=== PATIENT | female | born 1945 | race Caucasian/White ===

== ENCOUNTER 2019-01-28 11:56 | Inpatient (IN) ==
[2019-01-28] MEDS ORDERED: Loratadine 10 MG TABLET PO PRN (15:18)
[2019-01-28] MEDS ORDERED: Acetaminophen/Butalbital/CaffeineTABLET PO PRN (15:23)
[2019-01-28] MEDS ORDERED: Albuterol 2.5 MG/3 ML NEBULIZER IH PRN (15:23)
[2019-01-28] MEDS ORDERED: hydrOXYzine pamoate 25 MG CAPSULE PO PRN (15:31)
[2019-01-28] MEDS ORDERED: Nitroglycerin 0.4 MG TAB.SUBL SL PRN (15:31)
[2019-01-28] MEDS ORDERED: DICLOFENAC TOPICAL TP PRN (15:31)
[2019-01-28] MEDS: carvediloL 25 MG TABLET PO SCH (17:39)
[2019-01-28] MEDS ORDERED: Isosorbide MONOnitrate (24 HR) 30 MG TAB.ER.24H PO SCH (21:00)
[2019-01-28] MEDS ORDERED: carvediloL 25 MG TABLET PO SCH (21:00)
[2019-01-29 06:42] LABS: Basophils % 0.2 %; Eosinophils # 0.1 K/mcL (0.0-0.6); Eosinophils % 0.6 %; Hematocrit 39.5 % (35.3-44.9); Hemoglobin 12.2 g/dL (11.5-15.4); Immature Granulocytes % 0.4 % (0-4); Lymphocytes % 26.7 %; Mean Corpuscular HGB Conc 30.9 g/dL (31.6-35.5); Mean Corpuscular Hemoglobin 30.1 pg (28.0-33.3); Mean Corpuscular Volume 97.5 fL (83.0-100.0); Mean Platelet Volume 13.3 fL (9.4-12.4); Monocytes # 1.1 K/mcL (0.0-1.3); Monocytes % 8.6 %; Platelet Count 209 K/mcL (140-400); Red Blood Count 4.05 M/mcL (3.82-4.97); Red Cell Distribution Width 14.8 % (11.5-14.5); Segmented Neutrophils % 63.5 %; White Blood Count 12.5 K/mcL (4.3-11.1)
[2019-01-29 06:43] LABS: Lymphocytes # 3.3 K/mcL (0.6-4.6); Neutrophils # 7.9 K/mcL (1.6-8.9)
[2019-01-29 06:56] LABS: BUN/Creatinine Ratio 29 (6-26); Blood Urea Nitrogen 22 mg/dL (8-23); Carbon Dioxide 34 mEq/L (23-29); Chloride 101 mEq/L (98-107); Glucose 99 mg/dL (70-105); Osmolality,Calculated 295 (280-300); Potassium 3.9 mEq/L (3.5-5.1); Sodium 141 mEq/L (136-145); eGFR For African Americans > 60 (> 60); eGFR For Non-African Americans > 60 (> 60)
[2019-01-29] MEDS: Isosorbide MONOnitrate (24 HR) 60 MG TAB.ER.24H PO SCH (08:58)
[2019-01-29] MEDS: Furosemide 20 MG TABLET PO SCH (08:58)
[2019-01-29] MEDS: carvediloL 25 MG TABLET PO SCH ×2 (08:58→17:11)
[2019-01-29] MEDS: predniSONE 20 MG TABLET PO SCH (08:58)
[2019-01-29] MEDS ORDERED: Furosemide 40 MG TABLET PO SCH (09:00)
[2019-01-29] MEDS ORDERED: Aspirin 325 MG TABLET PO SCH (09:00)
[2019-01-29] MEDS ORDERED: amLODIPine 5 MG TABLET PO SCH (09:00)
[2019-01-29] MEDS: Ipratropium/Albuterol Neb 3 ML IH PRN (13:55)
[2019-01-30] MEDS: Isosorbide MONOnitrate (24 HR) 60 MG TAB.ER.24H PO SCH (09:59)
[2019-01-30] MEDS: predniSONE 20 MG TABLET PO SCH (09:59)
[2019-01-30] MEDS: Aspirin Enteric Coated 81 MG Tablet PO SCH (10:00)
[2019-01-30] MEDS: carvediloL 25 MG TABLET PO SCH ×2 (10:00→18:08)
[2019-01-30] MEDS: Furosemide 20 MG TABLET PO SCH (10:00)
[2019-01-30] MEDS: Ipratropium/Albuterol Neb 3 ML IH PRN (11:40)
[2019-01-31] MEDS: Ipratropium/Albuterol Neb 3 ML IH PRN (08:37)
[2019-01-31] MEDS: carvediloL 25 MG TABLET PO SCH ×2 (09:56→17:07)
[2019-01-31] MEDS: Furosemide 20 MG TABLET PO SCH (09:57)
[2019-01-31] MEDS: Isosorbide MONOnitrate (24 HR) 60 MG TAB.ER.24H PO SCH (09:57)
[2019-01-31] MEDS: Aspirin Enteric Coated 81 MG Tablet PO SCH (09:57)
[2019-02-01 07:06] VITALS: BP 139/82
[2019-02-01] MEDS: Furosemide 20 MG TABLET PO SCH (09:19)
[2019-02-01] MEDS: Aspirin Enteric Coated 81 MG Tablet PO SCH (09:19)
[2019-02-01] MEDS: carvediloL 25 MG TABLET PO SCH (09:19)
[2019-02-01] MEDS: Isosorbide MONOnitrate (24 HR) 60 MG TAB.ER.24H PO SCH (09:19)
== END 2019-02-01 14:30 | disposition home or self-care (01) | DRG 57 ==
LOC: INPPIK 15:38
PROVIDERS: ADMIT Family Medicine; ATTEND Family Medicine

== ENCOUNTER 2019-02-19 10:35 | Inpatient (IN) ==
[2019-02-19] MEDS ORDERED: Nitroglycerin 0.4 MG TAB.SUBL SL PRN (11:25)
[2019-02-19] MEDS ORDERED: Sennosides/Docusate Sodium TABLET PO PRN (11:25)
[2019-02-19] MEDS ORDERED: GuaiFENesin Liq 200 MG/10 ML UDC PO PRN (11:25)
[2019-02-19] MEDS ORDERED: Diclofenac Sodium [Voltaren] GEL TP PRN (11:25)
[2019-02-19] MEDS ORDERED: Melatonin 3 MG TABLET PO PRN (11:25)
[2019-02-19] MEDS: Levalbuterol Neb 0.63 MG/3 ML IH PRN ×2 (15:33→21:32)
[2019-02-19] MEDS: carvediloL 6.25 MG TABLET PO SCH (17:22)
[2019-02-19] MEDS: clonazePAM 0.5 MG TABLET PO PRN (20:02)
[2019-02-19] MEDS ORDERED: hydrOXYzine pamoate 25 MG CAPSULE PO SCH (21:00)
[2019-02-19] MEDS: Famotidine 20 MG TABLET PO SCH (21:07)
[2019-02-19] MEDS: Apixaban 5 MG TABLET PO SCH (21:08)
[2019-02-20] MEDS ORDERED: Furosemide 40 MG/4 ML VIAL IVP ONE (01:41)
[2019-02-20 01:58] LABS: ABG Base Excess 11 mEq/L (-2 to 3); ABG HCO3 41 mEq/L (21-27); ABG Oxygen Saturation 86 % (95-98); ABG PCO2 83 mmHg (35-45); ABG PO2 61 mmHg (85-104); ABG TCO2 43 mEq/L (20-26)
[2019-02-20 06:24] LABS: ABG Base Excess 15 mEq/L (-2 to 3); ABG HCO3 42 mEq/L (21-27); ABG Oxygen Saturation 99 % (95-98); ABG PCO2 66 mmHg (35-45); ABG PH 7.42 pH Units (7.32-7.45); ABG PO2 137 mmHg (85-104); ABG TCO2 44 mEq/L (20-26)
[2019-02-20] MEDS: Famotidine 20 MG TABLET PO SCH (08:32)
[2019-02-20] MEDS: carvediloL 6.25 MG TABLET PO SCH (08:32)
[2019-02-20] MEDS: Apixaban 5 MG TABLET PO SCH (08:32)
[2019-02-20] MEDS ORDERED: Isosorbide MONOnitrate (24 HR) 60 MG TAB.ER.24H PO SCH (09:00)
[2019-02-20] MEDS ORDERED: Loratadine 10 MG TABLET PO SCH (09:00)
[2019-02-20] MEDS ORDERED: Diltiazem CD (24hr) 120 MG CAPSULE PO SCH (09:00)
[2019-02-20] MEDS ORDERED: predniSONE 10 MG TABLET PO SCH (09:00)
[2019-02-20] MEDS ORDERED: Furosemide 40 MG TABLET PO SCH (09:00)
[2019-02-20] MEDS ORDERED: 0.9 % Sodium Chloride 1,000 ML ONE (10:24)
[2019-02-20] MEDS ORDERED: 0.9 % Sodium Chloride 1,000 ML IVC SCH (11:00)
[2019-02-20] MEDS: clonazePAM 0.5 MG TABLET PO PRN (11:20)
[2019-02-20] MEDS: Levalbuterol Neb 0.63 MG/3 ML IH PRN (11:47)
[2019-02-20 13:34] LABS: Basophils % 0.2 %; Eosinophils # 0.1 K/mcL (0.0-0.6); Eosinophils % 0.5 %; Hemoglobin 11.1 g/dL (11.5-15.4); Immature Granulocytes % 0.9 % (0-4); Lymphocytes # 1.3 K/mcL (0.6-4.6); Lymphocytes % 9.7 %; Mean Corpuscular HGB Conc 31.7 g/dL (31.6-35.5); Mean Corpuscular Hemoglobin 30.8 pg (28.0-33.3); Mean Corpuscular Volume 97.2 fL (83.0-100.0); Mean Platelet Volume 13.8 fL (9.4-12.4); Monocytes # 0.7 K/mcL (0.0-1.3); Monocytes % 5.7 %; Neutrophils # 10.7 K/mcL (1.6-8.9); Platelet Count 237 K/mcL (140-400); Red Cell Distribution Width 14.4 % (11.5-14.5); White Blood Count 12.9 K/mcL (4.3-11.1)
[2019-02-20 13:56] LABS: BUN/Creatinine Ratio 20 (6-26); Blood Urea Nitrogen 15 mg/dL (8-23); Calcium 9.5 mg/dL (8.6-10.3); Carbon Dioxide 38 mEq/L (23-29); Chloride 98 mEq/L (98-107); Glucose 149 mg/dL (70-105); Osmolality,Calculated 300 (280-300); Sodium 143 mEq/L (136-145); Troponin I 0.04 ng/mL (< 0.04); eGFR For African Americans > 60 (> 60); eGFR For Non-African Americans > 60 (> 60)
[2019-02-20] MEDS ORDERED: *HR* Digoxin 0.5 MG/2 ML AMPUL IVP ONE ×2 (14:44→15:00)
[2019-02-20 15:56] VITALS: BP 55/22
[2019-02-20 16:56] LABS: ABG Base Excess 9 mEq/L (-2 to 3); ABG HCO3 35 mEq/L (21-27); ABG Oxygen Saturation 100 % (95-98); ABG PCO2 57 mmHg (35-45); ABG PO2 341 mmHg (85-104); ABG TCO2 37 mEq/L (20-26); Blood Gas Modality ASSIST CONTROL; Blood Gas VT 500 cc
[2019-02-20 20:53] LABS: ABG Base Excess 9 mEq/L (-2 to 3); ABG HCO3 33 mEq/L (21-27); ABG Oxygen Saturation 99 % (95-98); ABG PCO2 40 mmHg (35-45); ABG PH 7.52 pH Units (7.32-7.45); ABG PO2 107 mmHg (85-104); ABG TCO2 34 mEq/L (20-26); Blood Gas Modality ASSIST CONTROL; Blood Gas VT 500 cc
== END 2019-02-20 15:00 | disposition short-term general hospital (02) | DRG 945 ==
LOC: INPPIK 11:28
PROVIDERS: ADMIT Family Medicine; ATTEND Family Medicine